=== PATIENT | male | born 1985 | race Caucasian/White ===

== ENCOUNTER 2017-03-29 12:44 | Inpatient (IN) | payer BC, OTHER ==
[~2017-03-29] VITALS: Ht 182.9 cm; Wt 64.4 kg
[2017-03-29 13:59] VITALS: BP 131/97
[2017-03-29] MEDS ORDERED: diphenhydrAMINE 50 MG CAPSULE PO PRN (14:45)
[2017-03-29] MEDS ORDERED: ONDANSETRON 4 MG/2 ML VIAL IM PRN (14:45)
[2017-03-29] MEDS ORDERED: BUPRENORPHINE HCL 2 MG TAB.SUBL SL PRN (14:45)
[2017-03-29] MEDS ORDERED: NICOTINE POLACRILEX 4 MG GUM-PK OF TEN BC PRN (14:45)
[2017-03-29] MEDS ORDERED: CLONIDINE HCL 0.1 MG TABLET PO PRN (14:45)
[2017-03-29] MEDS ORDERED: ONDANSETRON ODT 4 MG TAB.RAPDIS SL PRN (14:45)
[2017-03-29] MEDS ORDERED: IBUPROFEN 600 MG TABLET PO PRN (14:45)
[2017-03-29] MEDS ORDERED: METHOCARBAMOL 750 MG TABLET PO PRN (14:45)
[2017-03-29] MEDS ORDERED: MAGNESIUM HYDROXIDE 30 ML LIQUID UDC PO PRN (14:45)
[2017-03-29] MEDS ORDERED: ACETAMINOPHEN 325 MG TABLET PO PRN (14:45)
[2017-03-29] MEDS ORDERED: MIRALAX 17 GM POWD.PACK PO PRN (14:45)
[2017-03-29] MEDS ORDERED: LOPERAMIDE HCL 2 MG CAPSULE PO PRN ×2 (14:45)
[2017-03-29] MEDS ORDERED: HYDROXYZINE PAMOATE 25 MG CAPSULE PO PRN (14:45)
[2017-03-29] MEDS ORDERED: DICYCLOMINE HCL 20 MG TABLET PO PRN (14:45)
[2017-03-29] MEDS ORDERED: NICOTINE 14 MG/24HR PATCH TD PRN (14:45)
[2017-03-29] MEDS: BUPRENORPHINE HCL 2 MG TAB.SUBL SL SCH ×2 (14:53→21:21)
[2017-03-29] MEDS ORDERED: GABAPENTIN 300 MG CAPSULE PO ONE (15:00)
[2017-03-29] MEDS: LORAZEPAM 1 MG TABLET PO PRN (15:22)
[2017-03-29 15:35] LABS: *AMPHETAMINE, URINE POSITIVE (NEGATIVE); *BARBITURATE, URINE NEGATIVE (NEGATIVE); *CANNABINOID, URINE POSITIVE (NEGATIVE); *COCCAINE, URINE NEGATIVE (NEGATIVE); *OPIATE, URINE POSITIVE (NEGATIVE); *PHENCYCLIDINE SCREEN,URINE NEGATIVE (NEGATIVE)
[2017-03-29] MEDS: IV D5 1/2 NS 1000 ML 1,000 ML IV PRN (15:41)
[2017-03-29 16:00] VITALS: BP 140/80
[2017-03-29] MEDS: MAG HYDROX/AL HYDROX/SIMETH 30 ML LIQUID UDC PO PRN ×2 (16:19→21:20)
[2017-03-29 16:42] LABS: ALANINE AMINOTRANSFERASE 30 U/L (16-63); ALKALINE PHOSPHATASE 89 U/L (50-136); ASPARTATE AMINOTRANSFERASE 15 U/L (15-37); BILIRUBIN,TOTAL 0.8 mg/dL (0.2-1.0); CARBON DIOXIDE 26 mmol/L (21-32); CHLORIDE 99 mmol/L (98-107); POTASSIUM 3.4 mmol/L (3.5-5.1); TOTAL PROTEIN, SERUM 7.8 g/dL (6.4-8.2)
[2017-03-29 16:48] LABS: ETHANOL < 3 MG/DL (0-0)
[2017-03-29 16:53] LABS: GLUCOSE 140 mg/dL (74-106)
[2017-03-29 17:09] LABS: MAGNESIUM 1.8 mg/dL (1.8-2.4)
[2017-03-29 17:15] LABS: UREA NITROGEN, BLOOD 10 mg/dL (7-18)
[2017-03-29 17:45] LABS: BASOPHILS % (AUTO) 0.2 % (0.0-2.0); EOSINOPHILS % (AUTO) 0.1 % (0.0-7.0); HEMATOCRIT 46.7 % (40-50); HEMOGLOBIN 15.8 G/DL (14.0-18.0); LYMPHOCYTES # (AUTO) 1.5 K/UL (0.8-4.8); LYMPHOCYTES % (AUTO) 8.4 % (20.5-51.5); MEAN CORPUSCULAR HEMOGLOBIN 28.7 UUG (27.0-31.0); MEAN CORPUSCULAR HGB CONC 34 g/dL (32.0-37.0); MEAN CORPUSCULAR VOLUME 84.9 FL (82.0-92.0); MONOCYTES # (AUTO) 0.7 K/UL (0.1-1.30); MONOCYTES % (AUTO) 4.1 % (0.0-11.0); NEUTROPHILS % (AUTO) 87.2 % (38.5-71.5); PLATELET COUNT (AUTO) 255 K/UL (150-450); WHITE BLOOD COUNT (AUTO) 18.2 K/UL (4.0-11.2)
[2017-03-29 20:00] VITALS: BP 122/87
[2017-03-29] MEDS ORDERED: POTASSIUM CHLORIDE 10 MEQ CAPSULE.SA PO ONE (21:00)
[2017-03-29] MEDS ORDERED: LORAZEPAM 1 MG TABLET PO ONE (21:00)
[2017-03-29] MEDS: GABAPENTIN 300 MG CAPSULE PO SCH (21:22)
[2017-03-30] VITALS: BP 126/87
[2017-03-30] MEDS: IV D5 1/2 NS 1000 ML 1,000 ML IV PRN (01:06)
[2017-03-30] MEDS: LORAZEPAM 1 MG TABLET PO PRN ×2 (02:11→22:03)
[2017-03-30 04:00] VITALS: BP 123/73
[2017-03-30 08:00] VITALS: BP 108/70
[2017-03-30] MEDS: GABAPENTIN 300 MG CAPSULE PO SCH ×3 (08:55→22:04)
[2017-03-30] MEDS: BUPRENORPHINE HCL 2 MG TAB.SUBL SL SCH ×3 (08:56→22:03)
[2017-03-30] MEDS ORDERED: TUBERCULIN,PURIF.PROT.DERIV. 5 TU/0.1 ML TEST ID ONE (09:00)
[2017-03-30 12:00] VITALS: BP 117/76
[2017-03-30] MEDS: BACLOFEN 10 MG TABLET PO SCH ×2 (14:33→22:03)
[2017-03-30 16:00] VITALS: BP 140/85
[2017-03-30 20:00] VITALS: BP 125/78
[2017-03-30] MEDS: CLONIDINE HCL 0.1 MG TABLET PO SCH (22:03)
[2017-03-30] MEDS: TRAZODONE 50 MG TABLET PO SCH (23:20)
[2017-03-31] VITALS: BP 116/64
[2017-03-31 08:00] VITALS: BP 90/60
[2017-03-31] MEDS: CLONIDINE HCL 0.1 MG TABLET PO SCH ×3 (09:00→20:48)
[2017-03-31] MEDS ORDERED: BUPRENORPHINE HCL 2 MG TAB.SUBL SL SCH (09:00)
[2017-03-31] MEDS: BACLOFEN 10 MG TABLET PO SCH (09:07)
[2017-03-31] MEDS: GABAPENTIN 300 MG CAPSULE PO SCH ×3 (09:07→20:48)
[2017-03-31 09:12] LABS: HEPATITIS B SURFACE AG Negative (Negative)
[2017-03-31 12:00] VITALS: BP 116/82
[2017-03-31] MEDS ORDERED: BUPRENORPHINE HCL 2 MG TAB.SUBL SL PRN ×2 (12:30)
[2017-03-31] MEDS: BACLOFEN 20 MG TABLET PO SCH ×2 (14:18→20:48)
[2017-03-31 16:00] VITALS: BP 113/85
[2017-03-31 20:10] VITALS: BP 118/87
[2017-03-31] MEDS: TRAZODONE 50 MG TABLET PO SCH (21:00)
[2017-03-31] MEDS ORDERED: LORAZEPAM 1 MG TABLET PO ONE (21:00)
[2017-04-01 00:20] VITALS: BP 119/71
[2017-04-01 04:28] VITALS: BP 115/73
[2017-04-01 08:00] VITALS: BP 113/93
[2017-04-01] MEDS: GABAPENTIN 300 MG CAPSULE PO SCH ×3 (09:32→21:27)
[2017-04-01] MEDS: BACLOFEN 20 MG TABLET PO SCH ×3 (09:32→21:27)
[2017-04-01] MEDS: CLONIDINE HCL 0.1 MG TABLET PO SCH ×3 (09:37→21:27)
[2017-04-01 12:00] VITALS: BP 105/70
[2017-04-01 16:00] VITALS: BP 123/82
[2017-04-01] MEDS ORDERED: CLONIDINE HCL 0.2 MG TABLET PO ONE (16:15)
[2017-04-01] MEDS ORDERED: HYDROXYZINE PAMOATE 25 MG CAPSULE PO ONE (16:15)
[2017-04-01 20:00] VITALS: BP 118/70
[2017-04-01] MEDS: TRAZODONE 50 MG TABLET PO SCH (21:00)
[2017-04-01] MEDS ORDERED: GABA-534 PO ×2 (22:25)
[2017-04-01] MEDS ORDERED: CLON0.1T14 PO (22:25)
[2017-04-01] MEDS ORDERED: TRAZ-144 PO (22:25)
[2017-04-01] MEDS ORDERED: HYDR-3895 PO (22:25)
[2017-04-01] MEDS ORDERED: BACL20TA PO (22:25)
[2017-04-01] MEDS ORDERED: IBUP-1955 PO (22:25)
[2017-04-01] MEDS ORDERED: DICY20TA28 PO (22:25)
[2017-04-02 08:00] VITALS: BP 113/69
[2017-04-02 08:08] VITALS: BP 113/69
[2017-04-02 08:42] VITALS: BP 113/69
[2017-04-02] MEDS: CLONIDINE HCL 0.1 MG TABLET PO SCH (08:42)
[2017-04-02] MEDS: BACLOFEN 20 MG TABLET PO SCH (08:42)
[2017-04-02] MEDS: GABAPENTIN 300 MG CAPSULE PO SCH (08:42)
== END 2017-04-02 10:30 | disposition home or self-care (01) | DRG 895 ==
LOC: SRC 13:16
PROVIDERS: ADMIT Internal Medicine; ATTEND Internal Medicine
DX: F11.23 Opioid dependence with withdrawal (principal); F15.20 Other stimulant dependence, uncomplicated; D72.829 Elevated white blood cell count, unspecified; E87.6 Hypokalemia; F10.10 Alcohol abuse, uncomplicated; Y90.9 Presence of alcohol in blood, level not specified; F17.210 Nicotine dependence, cigarettes, uncomplicated; F41.9 Anxiety disorder, unspecified; Z82.49 Family history of ischemic heart disease and other diseases of the circulatory system; F12.90 Cannabis use, unspecified, uncomplicated; R73.9 Hyperglycemia, unspecified; G47.00 Insomnia, unspecified
CPT/HCPCS: 36415; 70030-TC; 80307; 80324; 80349; 80361; 83735; 85025; 86592; 86705; 86803; 87340; 87806; A4663; G0480; J2405; J3490

== ENCOUNTER 2018-04-30 16:04 | Inpatient (IN) | payer BC, OTHER ==
[~2018-04-30] VITALS: Ht 182.9 cm; Wt 68.0 kg
[~2018-04-30 16:04] MED LIST: BACL20TA PO; CLON0.1T14 PO; DICY20TA28 PO; GABA-534 PO; HYDR-3895 PO; IBUP-1955 PO; TRAZ-213 PO
--- NOTE | 2018-04-30 16:15 | NUR ---
Pre-assessment Note Pre-assessment done at intake office, client is A/O x4, he presents with flat affect, anxious mood, agitated, restless, flushed face, and clammy skin. Client is covered with a thick black blanket, he is shivering, he stated, "I'm so cold, nothing makes feel warm right now." Client reports withdrawal symptoms as follow: abdominal cramps, nausea, vomiting, loose stools, chills/cold, sweats, nasal congestions, yawning, tremors, goosebump, and generalized muscle aches. Client is wearing clean clothes, he appears malnourished, dark circles noted under eyes. Client avoids eye contact, he answers questions in a pressured speech. T 98.1 , RR 16, HR 101, BP 133/81, spO2 @ 97% on RA, no pain. He is fully ambulatory. He reports NKA. Client verbalized understanding of disposal of unidentifiable pills and controlled medications, unit protocol regarding vital signs Q4H, blood drawn, and urine drug test.
--- NOTE | 2018-04-30 16:31 | NUR ---
Admission Note Client stated, "I need help with my heroin addiction." Client is a 33 year old male, arrived on the unit at 1631. Client has a steady gait. Admitted for medically withdrawal of heroin. Client is a/o X 4. He appears anxious and restless. Client appears to be withdrawing from heroin. Client is oriented to unit, educated about protocols and how to work TV and call light in his room. Weigh: 150 pounds. Height: 6' COWS 9 Client denies taking any home medications. Client substance use: Heroin, client started using six years ago and within one year he became fully dependent on daily use. For the past three months he has been using 0.5gm smoked daily, last used 1/4 gm the morning of admission at 0800. Bilateral lung clear on auscultation, abdomen soft, non-tender, no edema noted. Client denies any history of withdrawal induces seizure. Client reports past medical history: Anxiety (2014). Past surgical history: [place] teeth removal (2004), Lymphadenectomy (2004). Client denies any history of involuntary psychiatric hospitalization, no history of suicidal/homicidal ideation. Client reports regular diet, full code ordered. Client declines PNA /FLU vaccine, stating, "No, I'm good, I don't think I'll get those diseases." He gives verbal consent for HIV. He reports history of eight treatment last being [facility] 03/29/17 to 06/02/16. his longest period of sobriety is for a whole year in 2012. Client stated, the reason why he relapses, "I believe it has to do with my social group, I need a different environment." When asked client how this treatment will be different he stated, "I don't know, but I want to make this my last." Client stated, "I need to go into treatment, at least a [address] Nathan notified of client's admission. Client provided urine (clear/yellow) for urine drug screen. All safety measures instituted. [place] precaution. Call light within reach. Will continue to monitor.
[2018-04-30] MEDS ORDERED: ONDANSETRON ODT 4 MG TAB.RAPDIS SL PRN (17:30)
[2018-04-30] MEDS ORDERED: MAGNESIUM HYDROXIDE 30 ML LIQUID UDC PO PRN (17:30)
[2018-04-30] MEDS ORDERED: MIRALAX 17 GM POWD.PACK PO PRN (17:30)
[2018-04-30] MEDS ORDERED: MAG HYDROX/AL HYDROX/SIMETH 30 ML LIQUID UDC PO PRN (17:30)
[2018-04-30] MEDS ORDERED: BUPRENORPHINE HCL 2 MG TAB.SUBL SL PRN (17:30)
[2018-04-30] MEDS ORDERED: diphenhydrAMINE 50 MG CAPSULE PO PRN (17:30)
[2018-04-30] MEDS ORDERED: ONDANSETRON 4 MG/2 ML VIAL IM PRN (17:30)
[2018-04-30] MEDS ORDERED: LOPERAMIDE HCL 2 MG CAPSULE PO PRN ×2 (17:30)
[2018-04-30 17:52] LABS: *AMPHETAMINE, URINE NEGATIVE (NEGATIVE); *BARBITURATE, URINE NEGATIVE (NEGATIVE); *CANNABINOID, URINE NEGATIVE (NEGATIVE); *COCCAINE, URINE NEGATIVE (NEGATIVE); *OPIATE, URINE POSITIVE (NEGATIVE); *PHENCYCLIDINE SCREEN,URINE NEGATIVE (NEGATIVE)
--- NOTE | 2018-04-30 19:16 | NUR ---
END OF SHIFT Endorse client to incoming nurse, client is in room, a/o x 4, client continues Client to present with anxiety, chills/cold, clammy skin, enlarged pupil, fatigue, and tremors felt. PRN Subutex Q4H SL for COWS 12 or greater. Last COWS 9 @ 1700. Adequate PO fluid intake 300mL, void x 1. Call light within reach.
--- NOTE | 2018-04-30 20:00 | NUR ---
COWS Assessment/PRN Medication Administration Patient continues to be monitored for increased signs and symptoms of withdrawal. Patient appears to be disheveled, with flat, depressed affect. He is noted with pressured blunt speech. Patient is noted to verbalize increased anxiety, agitation, restlessness, tremors, chills, sweats, increased yawning, body aches, goose bumps, and insomnia. PRN Ativan 2mg, Clonidine, Robaxin, and Benadryl administered. Will continue to monitor.
[2018-04-30 20:01] VITALS: BP 121/76
[2018-04-30] MEDS: LORAZEPAM 1 MG TABLET PO PRN (20:03)
[2018-04-30] MEDS: CLONIDINE HCL 0.1 MG TABLET PO PRN (20:03)
[2018-04-30] MEDS: METHOCARBAMOL 750 MG TABLET PO PRN (20:03)
[2018-04-30 20:38] LABS: BASOPHILS % (AUTO) 0.5 % (0.0-2.0); EOSINOPHILS # (AUTO) 0.2 K/uL (0.0-0.7); EOSINOPHILS % (AUTO) 1.5 % (0.0-7.0); HEMATOCRIT 39.7 % (36.7-47.1); HEMOGLOBIN 13.9 g/dL (12.5-16.3); LYMPHOCYTES # (AUTO) 1.6 K/uL (20.0-40.0); LYMPHOCYTES % (AUTO) 15.3 % (20.5-51.5); MEAN CORPUSCULAR HGB CONC 35 g/dL (32.5-36.3); MEAN CORPUSCULAR VOLUME 88.5 fL (73.0-96.2); MONOCYTES # (AUTO) 0.5 K/uL (2.0-10.0); MONOCYTES % (AUTO) 5.1 % (0.0-11.0); NEUTROPHILS # (AUTO) 8.3 K/uL (1.8-8.9); NEUTROPHILS % (AUTO) 77.6 % (38.5-71.5); PLATELET COUNT (AUTO) 186 K/uL (152-348); RED BLOOD CELL COUNT(AUTO) 4.49 MIL/uL (4.06-5.63); WHITE BLOOD COUNT (AUTO) 10.7 K/uL (3.6-10.2)
[2018-04-30 20:51] LABS: ETHANOL < 3 MG/DL (0-0)
[2018-04-30 20:52] LABS: ALANINE AMINOTRANSFERASE 53 U/L (16-63); ALKALINE PHOSPHATASE 100 U/L (50-136); ASPARTATE AMINOTRANSFERASE 25 U/L (15-37); BILIRUBIN,TOTAL 0.3 mg/dL (0.2-1.0); CARBON DIOXIDE 29 mmol/L (21-32); CHLORIDE 101 mmol/L (98-107); CREATININE 0.9 mg/dL (0.6-1.3); GLUCOSE 97 mg/dL (74-106); MAGNESIUM 1.9 mg/dL (1.8-2.4); POTASSIUM 3.7 mmol/L (3.5-5.1); TOTAL PROTEIN, SERUM 6.7 g/dL (6.4-8.2); UREA NITROGEN, BLOOD 11 mg/dL (7-18)
--- NOTE | 2018-04-30 21:00 | NUR ---
PRN Medication Reassessment patient is noted in bed with eyes closed. Breathing even and non labored. No signs of restlessness or facial grimacing noted. PRN Ativan 2mg, Clonidine, Robaxin, and Benadryl noted to be effective. Will continue to monitor.
[2018-04-30 21:16] LABS: THYROID STIMULATING HORMONE 0.258 mIU/mL (0.358-3.740)
--- NOTE | 2018-05-01 00:27 | NUR ---
COWS and Vitals Patient is noted in bed with eyes closed. Breathing even and non labored. No signs of restlessness or facial grimacing noted. Patient refused vitals. COWS not able to be completed as per order. Will continue to monitor.
--- NOTE | 2018-05-01 07:19 | NUR ---
End of Shift Patient is in bed with eyes closed. Breathing even and non labored. Patient is a 33 year old male admitted for medically supervised opiate withdrawal and is currently receiving PRN medications for increased signs and symptoms of withdrawal. Patient is noted to refuse Subutex medication and is only requesting PRN medications for increased signs and symptoms of withdrawal. Patients last COWS noted to be 17. He was noted to refuse Vitals throughout the shift. He received PRN Ativan 2mg, Benadryl, and Clonidine with medications noted to be effective. Patient noted to sleep a total of 10 hours. Patient appears to be disheveled, with flat, depressed affect. He is noted with pressured blunt speech. He is able to verbalize increased anxiety, agitation, restlessness, tremors, chills, sweats, increased yawning, body aches, goose bumps, and insomnia. All needs attended to promptly. Will endorse to continue plan of care as ordered.
[2018-05-01 08:00] VITALS: BP 114/73
--- NOTE | 2018-05-01 08:00 | NUR ---
START OF SHIFT: Received Pt A/O X 4 laying in bed . He is fidgety. His skin is moist. Piloerection of the skin noted. He reports chills.sweats,severe anxiety,restlessness,teary eyes and yawning. COWS 18 He states he does not want to take Subutex yet because he is afraid it is too soon. Encouraged him to take it to reduce symptoms of w/d. He requested PRN Ativan and PRN Robaxin and Ibuprofen and states he will take Subutex later. Encouraged increased fluids to assist ion facilitating detox process. Encouraged rest. He refused PPD. Will continue to monitor and offer support.
[2018-05-01] MEDS: METHOCARBAMOL 750 MG TABLET PO PRN ×2 (08:56→23:08)
[2018-05-01] MEDS: MULTIVITAMINS,THERAPEUTIC TABLET PO SCH (08:56)
[2018-05-01] MEDS: LORAZEPAM 1 MG TABLET PO PRN (08:56)
[2018-05-01] MEDS ORDERED: TUBERCULIN,PURIF.PROT.DERIV. 5 TU/0.1 ML TEST ID ONE (09:00)
[2018-05-01 12:00] VITALS: BP 108/50
--- NOTE | 2018-05-01 12:05 | NUR ---
COWS=11 He reports chills,sweats, anxiety and body aches. He continues to lay in bed and refuses PRNs at this time.
--- NOTE | 2018-05-01 14:05 | NUR ---
Pt c/o severe body aches,anxiety,sweats,chills,restlessness and agitation. COWS 18 He agreed to take Subutex 4mg SL PRN to manage s/s of w/d. Will monitor effectiveness of PRN medication.
--- NOTE | 2018-05-01 14:20 | NUR ---
Therapist met client, and prompted him to attend group therapy when he is ready.
--- NOTE | 2018-05-01 14:35 | NUR ---
Pt reports feeling fatigued,restless,achy,sweaty and irritated. COWS 11 Subutex mildly effective in reducing s/s of w/d.
[2018-05-01 16:00] VITALS: BP 106/72
[2018-05-01] MEDS: CLONIDINE HCL 0.1 MG TABLET PO PRN (16:19)
--- NOTE | 2018-05-01 16:20 | NUR ---
PRN Zofran ODT and PRN Clonidine givne for reported episode of vomiting,chills and sweats. Will monitor effectiveness of PRN med.
--- NOTE | 2018-05-01 17:28 | NUR ---
PRN Clonidine effective. PRN Zofran odt not effective as Pt had another episode of vomiting. PRN Zofran IM administered to manage N/V. Will monitor effectiveness.
--- NOTE | 2018-05-01 17:55 | NUR ---
PRN Subutex 4mg SL given for reported body aches,sweats,chills,anxiety and restlessness.COWS 16 Will monitor effectiveness. Addendum: 05/01/18 at 1843 by ERICA VILLANUEVA RN PRNell ANDERSON effective
[2018-05-01] MEDS: BUPRENORPHINE HCL 2 MG TAB.SUBL SL PRN ×2 (17:58→23:08)
--- NOTE | 2018-05-01 18:20 | NUR ---
PRN Subutex effective. COWS 11
--- NOTE | 2018-05-01 18:44 | NUR ---
END OF SHIFT: Pt stayed in bed most of shift. He refused PRN Subutex until 1400 to manage s/s of w/d. He reported sweats,chills,body aches,anxiety,restlessness ,nausea and had two episodes of vomiting. He is disheveled. PRN Subutex given X 2 to manage s/s of w/d.Last COWS 11 PRN Clonidine,Robaxin and Zofran PO which was not effective so Zofran IM given for vomiting 4 day taper to start tomorrow in AM and PRNs available tonight. Encouraged slow small sips of fluid. Encouraged rest. Will pass shift report to oncoming night nurse.
--- NOTE | 2018-05-01 19:15 | NUR ---
START OF SHIFT Patient is a 33-year-old male admitted on 04/30/18 for opiate withdrawal. Patient is scheduled to start a 4-day Subutex taper tomorrow, 05/02/18. Patients last COWS score was 11, per endorsement. Patient received PRN Subutex 4mg x2, for elevated COWS scores. Patient also received PRN Clonidine, Robaxin, Ativan, and Zofran SL and Zofran IM for nausea and episodes of emesis. PRN medications were noted to be effective. Upon assessment, patient is alert and oriented x4, complaining of nausea and heartburn. Patient is not actively vomiting at this time. Patient reports lower back pain 9/10 on pain scale. Patient appears pale, disheveled, and tired, but states I feel better than before. Patient reports anxiety, chills, and difficulty sleeping. Patient is on fall precautions with no history of seizure activity. Safety measures in place, side rails up x2, bed locked in low position, call light within reach. Will continue to monitor.
[2018-05-01 20:00] VITALS: BP 97/71
--- NOTE | 2018-05-01 20:00 | NUR ---
COWS 10 Patient reports anxiety, chills and sweats, nausea, restlessness and agitation, lower back pain, and irritability. Current COWS 10. Respirations even and unlabored. Safety measures in place, call light within reach. SN to administer meds as ordered.
[2018-05-01] MEDS: IBUPROFEN 600 MG TABLET PO PRN (21:03)
--- NOTE | 2018-05-01 21:03 | NUR ---
PRN MAALOX & MOTRIN Patient reports lower back pain 9/10 on pain scale. Patient complains of heartburn stating, "I feel like it's making me nauseous." PRN Maalox and PRN Motrin given PO. Safety measures in place, side rails up x2, bed locked in low position, call light within reach. SN provided patient with two heat packs in addition to PRNs. Will monitor for effectiveness.
--- NOTE | 2018-05-01 22:03 | NUR ---
PRN MAALOX & MOTRIN REASSESSMENT Patient reports lower back pain 6/10 on pain scale stating, "the Motrin helped a little. The heat packs are good, even though they only last like 20 minutes." Patient also states that PRN Maalox relieved heartburn and also that his nausea had subsided. Safety measures in place, side rails up x2, bed locked in low position, call light within reach. Will continue to monitor.
[2018-05-01] MEDS: QUETIAPINE FUMARATE 25 MG TABLET PO PRN (23:08)
--- NOTE | 2018-05-01 23:08 | NUR ---
COWS 13, PRN SUBUTEX 4mg, ROBAXIN & SEROQUEL Patient reports increased anxiety, intermittent nausea, chills and sweats, body aches, a stuffy nose, and patient has an elevated HR. Patient reports difficulty sleeping as well. COWS 13. PRN Subutex 4mg given SL, PRN Robaxin 750mL given PO, PRN Seroquel 50mg given PO. Safety measures in place, side rails up x2, bed locked in low position, call light within reach. Will monitor for effectiveness.
[2018-05-02] VITALS: BP 102/64
--- NOTE | 2018-05-02 00:08 | NUR ---
COWS DEFERRED, PRN REASSESSMENT Patient is observed sleeping in bed with eyes closed, respirations even and unlabored. COWS deferred at this time; to be assessed while patient is awake. Unable to assess effectiveness of PRN medications. Safety measures in place, call light within reach. Will continue to monitor.
--- NOTE | 2018-05-02 04:00 | NUR ---
VITALS REFUSED, COWS DEFERRED Vitals refused at this time, COWS deferred due to patient sleeping; to be assessed and scored while patient is awake. Respirations even and unlabored, 16/min. Safety measures in place, side rails up x2, bed locked in low position, call light within reach. Will continue to monitor.
--- NOTE | 2018-05-02 07:18 | NUR ---
END OF SHIFT Patient is a 33-year-old male admitted on 04/30/18 for opiate withdrawal. Patient is scheduled to start a 4-day Subutex taper today, 05/02/18. Patients last COWS score was 13. Patient received PRN Subutex 4mg for elevated COWS score. Patient also received PRN Robaxin, Seroquel, Maalox, and Motrin. PRN medications were noted to be effective. Patient slept for 11 hours, total intake of 1,595mL, void x3, stool x1. Patient has requested to make a phone call this morning if possible. Patient is on fall precautions with no history of seizure activity. Safety measures in place, side rails up x2, bed locked in low position, call light within reach. Will endorse to day shift.
--- NOTE | 2018-05-02 07:35 | NUR ---
START OF SHIFT Endorse rcvd from ongoing nurse, client is in room, lying in bed on his R side, he sound asleep, easy to awaken, RR 16, even, non-labored. Last COWS 13 @ 2300. PRN Subutex 4mg SL for COWS 13, PRN Robaxin 750mL PO, PRN Motrin 600mg PO for back pain 01/11, PRN Maalox 30mL for heartburn, PRN Seroquel 50mg PO for insomnia. Client has been sleeping for 11 hrs. [place] precautions. Side rails x 2 up. Call light within reach. Will continue to monitor.
[2018-05-02 08:18] VITALS: BP 98/55
[2018-05-02] MEDS ORDERED: 4 DAY TAPER BUPRENORPHINE -SERENITY PROTOCOL SL PRN (09:00)
[2018-05-02] MEDS: MULTIVITAMINS,THERAPEUTIC TABLET PO SCH (09:35)
[2018-05-02] MEDS: BUPRENORPHINE HCL 2 MG TAB.SUBL SL SCH ×3 (09:36→21:52)
--- NOTE | 2018-05-02 09:36 | NUR ---
COWS 14 Client is in room, he presents with emotional volatility, agitation, anxiety, poor appetite, flushed facial skin, depression, difficulty concentrating, difficulty thinking clearly, fatigue, and tremors. Subutex 4mg SL administered. Encourage client to increase PO fluid intake as tolerated to facilitate detox. Call light within reach.
[2018-05-02 12:23] VITALS: BP 125/71
[2018-05-02] MEDS: IBUPROFEN 600 MG TABLET PO PRN (12:30)
[2018-05-02] MEDS: GABAPENTIN 300 MG CAPSULE PO SCH ×2 (12:30→16:19)
[2018-05-02] MEDS: METHOCARBAMOL 750 MG TABLET PO PRN (12:30)
[2018-05-02] MEDS: ACETAMINOPHEN 325 MG TABLET PO PRN (12:30)
--- NOTE | 2018-05-02 12:30 | NUR ---
COWS 14 & PRN Tylenol 650g, Motrin 600mg PO for generalized body aches 11/10, Robaxin 750mg PO for myalgia. Client presents with depressed mood, flat affect, flushed facial skin, goosebump, difficulty concentrating. Client reports tremors, generalized body aches, abdominal cramps, myalgia, restless legs, nasal congestion, yawning, and fatigue. Call light within reach.
--- NOTE | 2018-05-02 13:30 | NUR ---
Reassess PRN Tylenol 650mg, Motrin 600mg, Robaxin 750mg client reports relief from generalized body aches 0/10 and myalgia. Call light within reach.
--- NOTE | 2018-05-02 15:37 | NUR ---
COWS 13 Client continues to presents with agitation, anxiety, abdominal cramps, anhedonia, poor appetite, cold/chills, clammy skin, depression, difficulty concentrating, difficulty thinking clearly, enlarged pupils, fatigue, fine tremors, flushed facial skin, goosebump, generalized body aches, restless legs, sneezing, yawning, and fatigue. Schedule Subutex 4mg SL administered. Will continue to monitor. Call light within reach.
[2018-05-02 16:29] VITALS: BP 119/80
[2018-05-02] MEDS ORDERED: GABA600T12 PO ×2 (16:38)
[2018-05-02] MEDS ORDERED: BACL20TA PO (16:38)
--- NOTE | 2018-05-02 19:09 | NUR ---
END OF SHIFT Endorse client to incoming nurse, client is in room, a/o x 4, client continues to presents with agitation, anxiety, abdominal cramps, anhedonia, poor appetite, cold/chills, clammy skin, depression, difficulty concentrating, difficulty thinking clearly, enlarged pupils, fatigue, fine tremors, flushed facial skin, goosebump, generalized body aches, restless legs, sneezing, yawning, and fatigue Client denies N/V/D, no SI/HI. Client is on first of 4 day Subutex taper. Last COWS 13 @ 1600. Client is compliant with 1/3 of group therapy. Consumes 50-75% of meals. Adequate PO fluid intake 2806mL, void x 5, stool x 1. Call light within reach.
--- NOTE | 2018-05-02 19:30 | NUR ---
Start of Shift Patient Received. Per endorsement, patient is a 33 year old male that was started on a modified Subutex taper. Patient received PRN Motrin, Tylenol, and Robaxin with medication noted to be effective. Last noted COWS 13. Upon rounds patient is noted in bed awake alert and verbally responsive. Patient is noted watching TV in a dark room. Patient appears to be flat with depressed affect. His speech was noted to be blunt, pressured, with one word responses. He is able to verbalize increased anxiety, agitation, clammy skin, intermittent chills and sweats, generalized body aches, tremors, restlessness, increased yawning, and insomnia. He also verbalizes increased fatigue and difficult concentrating due to increased racing thoughts. Patient has been unable to participate in group and social activities due to his withdrawal symptoms but is able to verbalize that starting taper medication has minimizing signs and symptoms of withdrawal. All needs attended to promptly. Will continue plan of care as ordered.
[2018-05-02 20:30] VITALS: BP 116/77
--- NOTE | 2018-05-02 21:00 | NUR ---
COWS Assessment Patient continues to be monitored for increased signs and symptoms of Opiate withdrawal. Patient appears to be flat with depressed affect. Speech is blunt, pressured, with one word responses. He is able to verbalize increased anxiety, agitation, clammy skin, intermittent chills and sweats, generalized body aches, tremors, restlessness, increased yawning, and insomnia. He also verbalizes increased fatigue and difficult concentrating due to increased racing thoughts. He continues on Routine medications as ordered. Will continue to monitor.
[2018-05-02] MEDS: QUETIAPINE FUMARATE 25 MG TABLET PO PRN (21:52)
[2018-05-02] MEDS: CLONIDINE HCL 0.1 MG TABLET PO PRN (22:00)
--- NOTE | 2018-05-02 22:00 | NUR ---
PRN Medication Administration Patient is noted verbalizing increased anxiety, chills, sweats, and inability of falling asleep. PRN Clonidine and Seroquel administered as per order. Will continue to monitor.
--- NOTE | 2018-05-02 23:03 | NUR ---
PRN Medication Reassessment Patient is noted in bed with eyes closed. Breathing even and non labored. No signs of restlessness or facial grimacing noted. PRN Clonidine and Seroquel noted to be effective. Will continue to monitor.
--- NOTE | 2018-05-03 00:45 | NUR ---
COWS Assessment and Vitals Patient is noted in bed with eyes closed. Breathing even and non labored. No signs of restlessness or facial grimacing noted. Patient Refused vitals. COWS Assessment not able to be completed as per order. Will continue to monitor.
--- NOTE | 2018-05-03 07:14 | NUR ---
End of Shift Patient is a 33 year old male that continues on a modified Subutex taper. Patient received PRN Clonidine and Seroquel with medications noted to be effective. Last noted COWS 13. Patient noted to sleep a total of 6 hours. Patient appears to be flat with depressed affect, speech is blunt, pressured, with one word responses. He is able to verbalize increased anxiety, agitation, clammy skin, intermittent chills and sweats, generalized body aches, tremors, restlessness, increased yawning, and insomnia. He also verbalizes increased fatigue and difficult concentrating with increased racing thoughts. Patient has been noted to be withdrawn to room due to physical withdrawal symptoms but is able to verbalize that starting taper medication has minimizing signs and symptoms of withdrawal. All needs attended to promptly. Will endorse to continue plan of care as ordered.
--- NOTE | 2018-05-03 07:30 | NUR ---
START OF SHIFT Endorse rcvd from ongoing nurse, client is in room, sitting at the edge of bed, a/o x 4, he presents with depressed mood, dark circles under eyes, dry lips, avoidant gaze, tremors, and difficulty concentrating. Client reports feeling depressed, poor appetite, anhedonia, cold/chills, body aches, restless legs, and difficulty sleeping. Encouraged client to attend group therapy to learn skills to maintain sober. PRN Clonidine 0.1mg PO for anxiety and agitation, Seroquel 50mg PO for insomnia, he slept 6hrs. Client is on 2nd of 4 day Subutex taper. Last COWS 13 @ 1999. [place] precautions. Side rails x 2 up. Call light within reach. Will continue to monitor.
[2018-05-03 08:16] VITALS: BP 101/66
[2018-05-03] MEDS ORDERED: BUPRENORPHINE HCL 2 MG TAB.SUBL SL SCH (09:00)
[2018-05-03] MEDS: GABAPENTIN 300 MG CAPSULE PO SCH ×2 (09:14→12:20)
[2018-05-03] MEDS: MULTIVITAMINS,THERAPEUTIC TABLET PO SCH (09:14)
--- NOTE | 2018-05-03 09:15 | NUR ---
COWS 13 Client presents with depressed mood, dark circles under eyes, dry lips, avoidant gaze, tremors, and difficulty concentrating. Client reports feeling depressed, poor appetite, anhedonia, cold/chills, body aches, restless legs, and difficulty sleeping. Subutex 4mg SL administered. Encourage client to attend group therapy to learn skills to maintain sober. Call light within reach.
[2018-05-03 12:20] VITALS: BP 116/79
[2018-05-03] MEDS: HYDROXYZINE PAMOATE 25 MG CAPSULE PO PRN (12:20)
[2018-05-03] MEDS: ACETAMINOPHEN 325 MG TABLET PO PRN (12:20)
[2018-05-03] MEDS: CLONIDINE HCL 0.1 MG TABLET PO PRN (12:20)
[2018-05-03] MEDS: METHOCARBAMOL 750 MG TABLET PO PRN ×2 (12:20→23:06)
[2018-05-03] MEDS: IBUPROFEN 600 MG TABLET PO PRN (12:20)
--- NOTE | 2018-05-03 12:20 | NUR ---
COWS 15 & PRN Vistaril 50mg PO for anxiety mb increased P 103, Clonidine 0.1mg PO for agitation, cold/chills, Robaxin 750mg PO for myalgia on lower back, Motrin 600mg PO and Tyleol 650mg PO for back pain. Will continue to monitor. Call light within reach.
[2018-05-03] MEDS ORDERED: QUETIAPINE FUMARATE 25 MG TABLET PO PRN (12:45)
--- NOTE | 2018-05-03 12:59 | NUR ---
Therapist prompted client to attend all daily group therapy sessions.
--- NOTE | 2018-05-03 13:20 | NUR ---
Reassess PRN Vistaril 50mg, Clonidine 0.1mg, Robaxin 750mg, on lower back, Motrin 600mg, and Tylenol 650mg, client reports slight relief from anxiety, agitation, and decreased in low back pain. Call light within reach.
[2018-05-03] MEDS: BUPRENORPHINE HCL 2 MG TAB.SUBL SL SCH ×2 (15:17→21:44)
--- NOTE | 2018-05-03 15:17 | NUR ---
COWS 14 Client reports increased anxiety, agitation, clammy skin, intermittent chills and sweats, generalized body aches, tremors, restlessness, increased yawning, insomnia, and fatigue. Schedule Subutex 2mg SL administered. Call light within reach.
[2018-05-03] MEDS: KETOCONAZOLE 2% SHAMPOO 120 ML BOTTLE TP SCH (15:25)
[2018-05-03 16:48] VITALS: BP 126/86
--- NOTE | 2018-05-03 19:06 | NUR ---
END OF SHIFT Endorse client to incoming nurse, client is in room, a/o x 4, client continues to presents with anxiety, agitation, clammy skin, intermittent chills and sweats, generalized body aches, tremors, restlessness, increased yawning, insomnia, and fatigue. Client denies N/V/D, no SI/HI. PRN Vistaril 50mg PO for anxiety mb increased P 103, Clonidine 0.1mg PO for agitation, cold/chills, Robaxin 750mg PO for myalgia on lower back, Motrin 600mg PO and Tyleol 650mg PO for back pain Client is on second of 4 day Subutex taper. Last COWS 14 @ 1520. Client is compliant with 1/3 of group therapy. Consumes 50-75% of meals. Adequate PO fluid intake 2870mL, void x 4, stool x 1. Call light within reach.
--- NOTE | 2018-05-03 19:25 | NUR ---
START OF SHIFT Patient is a 33-year-old male admitted on 04/30/18 for opiate withdrawal. Patient is currently on a 4-day Subutex taper, tolerating well; today is the second day of the taper. Patients last COWS was 14, per endorsement. Patient received the following PRNs today: Clonidine, Vistaril, Tylenol, Robaxin and Motrin. PRN medications were noted to be somewhat effective. Upon assessment, patient appears pale and tired. Patient complains of anxiety and difficulty sleeping and states that he had requested Trazodone instead of Seroquel, however, the request was not reflected in patients eMAR. Patient appears disheveled and unkempt. Patient is on fall precautions with no history of seizure activity. Safety measures in place, side rails up x2, bed locked in low position, call light within reach. Will continue to monitor.
[2018-05-03 20:00] VITALS: BP 133/90
--- NOTE | 2018-05-03 20:00 | NUR ---
COWS 14 Patient reports anxiety, restlessness, agitation, yawning, body aches, piloerection, chills and sweats. HR elevated. Current COWS 14. Patient requests scheduled meds later in the evening. Safety measures in place, call light within reach. Will continue to monitor.
[2018-05-03] MEDS ORDERED: QUETIAPINE FUMARATE 100 MG TABLET PO PRN (21:00)
[2018-05-03] MEDS: GABAPENTIN 400 MG CAPSULE PO SCH (21:44)
--- NOTE | 2018-05-03 23:06 | NUR ---
PRN SEROQUEL & ROBAXIN Patient reports body aches and difficulty sleeping. PRN Seroquel 100mg given PO and PRN Robaxin 750mg given PO. Safety measures in place, side rails up x2, bed locked in low position, call light within reach. Will monitor for effectiveness.
[2018-05-04] VITALS: BP 124/78
--- NOTE | 2018-05-04 00:06 | NUR ---
COWS 13, PRN SEROQUEL & ROBAXIN REASSESSMENT Patient has elevated HR and reports anxiety, restlessness, agitation, generalized body aches, piloerection, chills and sweats. Patient is observed yawning occasionally. Patient states that body aches have improved mildly. Patient reports not feeling sleepy yet but that PRN Seroquel "made me want some snacks." Safety measures in place, side rails up x2, bed locked in low position, call light within reach. Will continue to monitor.
--- NOTE | 2018-05-04 04:00 | NUR ---
VITALS REFUSED, COWS DEFERRED Patient refused vitals at this time due to difficulty falling back asleep. COWS deferred due to patient sleeping; to be assessed while patient is awake. Respirations even and unlabored, 18/min. Safety measures in place, side rails up x2, bed locked in low position, call light within reach. Will continue to monitor.
--- NOTE | 2018-05-04 07:21 | NUR ---
END OF SHIFT Patient is a 33-year-old male admitted on 04/30/18 for opiate withdrawal. Patient is currently on a 4-day Subutex taper, tolerating well; today will be day 3 of the taper. Patients last COWS was 13. Patient received PRN Seroquel and Robaxin, both noted to be somewhat effective. Patient slept for 6 hrs, total intake of 1,000mL, void x2, stool x0. Patient is on fall precautions with no history of seizure activity. Safety measures in place, side rails up x2, bed locked in low position, call light within reach. Will endorse to day shift.
--- NOTE | 2018-05-04 07:40 | NUR ---
START Of SHIFT Pt is a 33 yr old male, admitted on 04/30/18 for Opiate withdrawal and is on 4 day Subutex taper as ordered. Received report from mine shifter nurse. Pt was given Robaxin PRN and Seroquel PRN during the night. Medication was effective. Last COWS score was 13. Pt slept for 6 hrs and remains in bed sleeping with respirations even and unlabored. Skin is intact, warm and moist to touch. Pt room is noted disheveled with dirty clothes on the floor and multiple open bottles of water on bedside table. Safety precautions observed. Call light is within reach. Will continue to monitor.
[2018-05-04 08:00] VITALS: BP 106/60
[2018-05-04] MEDS: GABAPENTIN 400 MG CAPSULE PO SCH ×2 (10:01→20:53)
[2018-05-04] MEDS: MULTIVITAMINS,THERAPEUTIC TABLET PO SCH (10:01)
[2018-05-04] MEDS: BUPRENORPHINE HCL 2 MG TAB.SUBL SL SCH ×3 (10:01→20:51)
--- NOTE | 2018-05-04 10:05 | NUR ---
COWS ASSESSMENT Pt is c/o anxiety, agitation, sweats, chills, lower back pain and stuffy nose. Pt is noted with fine tremors and clammy skin. COWS score was 9. Encouraged increase fluid intake. Will continue to monitor.
[2018-05-04] MEDS: KETOCONAZOLE 2% SHAMPOO 120 ML BOTTLE TP SCH (10:07)
[2018-05-04 12:00] VITALS: BP 101/66
--- NOTE | 2018-05-04 12:00 | NUR ---
COWS ASSESSMENT Pt is c/o anxiety, sweats, and lower back pain and tooth ache 4/10. Pt is observed with flat affect, fine tremors on BUE and clammy skin. COWS score is 10. Encouraged increase fluid intake. Will continue to monitor.
[2018-05-04] MEDS ORDERED: AMMONIUM LACTATE 12% LOTION 225 GM BOTTLE TP PRN (13:15)
[2018-05-04] MEDS ORDERED: TRAZODONE 100 MG TABLET PO PRN (13:30)
[2018-05-04 16:30] VITALS: BP 118/90
--- NOTE | 2018-05-04 19:26 | NUR ---
END OF SHIFT Pt is a 33 yr old male, AA&Ox4. Pt was admitted on 04/30/18 for Opiate withdrawal and is on 4 day Subutex taper as ordered. Pt has been observed with increase fatigue and remained in bed throughout the day. Pt was encouraged to attend group therapy but pt refused. Pt was c/o anxiety, agitation, muscle aches, sweats, chills and stuffy nose. Pt is observed with fine tremors on BUE, restless legs and skin is clammy to touch. Motrin PRN was offered for muscle aches but pt refused stating he is able to tolerate pain level. Last COWS score was 12 at 1600. Pt was encouraged increase fluid intake for hydration. Safety precautions observed. Endorsed to manufacturing supervisor 2nd shift nurse to continue with care.
[2018-05-04 20:00] VITALS: BP 137/97
--- NOTE | 2018-05-04 20:00 | NUR ---
Start of Shift Patient noted to have headache=3/10 and pain on both shoulders=3/10. Patient refused PRN medications at this time. Patient appears anxious, is hyperverbal and disheveled. Patient is melancholic and avoids eye contact. Patient with flat affect and is noted to stare into the ceiling when being spoken to. Patient has anxiety per verbalization. Fall, universal and safety prec in place. Call light within reach. Last COWS=11. Will continue to monitor.
[2018-05-04] MEDS: CLONIDINE HCL 0.1 MG TABLET PO PRN (20:53)
--- NOTE | 2018-05-04 20:55 | NUR ---
PRN Clonidine Patient c/o anxiety and is noted to be easily "irritated". GD=326/97. Administered Clonidine 0.1 mg PO PRN. Will reassess.
[2018-05-04] MEDS ORDERED: GABAPENTIN 300 MG CAPSULE PO SCH (21:00)
--- NOTE | 2018-05-04 21:55 | NUR ---
Clonidine PRN Patient verbalized that he feels "better" and "less anxious".
[2018-05-04] MEDS: IBUPROFEN 600 MG TABLET PO PRN (22:28)
[2018-05-04] MEDS: ACETAMINOPHEN 325 MG TABLET PO PRN (22:29)
--- NOTE | 2018-05-04 22:30 | NUR ---
PRN Tylenol, Motrin and Trazodone Patient c/o headache=8/10 and shoulder pain=7/10. Administered Tylenol 650 mg PO PRN and Motrin 600 mg PO PRN. Patient also c/o inability to sleep. Administered Trazodone 150 mg PO PRN. Will reassess.
--- NOTE | 2018-05-04 23:30 | NUR ---
Reassessment-Tylenol, Motrin and Trazodone Patient verbalized that pain level on both head and shoulders=2/10. Patient also verbalized getting more sleepy.
[2018-05-05] VITALS: BP 126/88
--- NOTE | 2018-05-05 | NUR ---
COWS=10 Patient continues to c/o intermittent anxiety, nausea and headache and pain on shoulders. Patient with sad demeanor and is withdrawn.
--- NOTE | 2018-05-05 04:00 | NUR ---
COWS deferred Patient asleep and with no SOB nor facial grimacing noted. COWS deferred per MD order.
--- NOTE | 2018-05-05 07:19 | NUR ---
End of Shift Patient continues to c/o intermittent pain on head and both shoulders. PRN Tylenol, Motrin, Trazodone and Clonidine administered during the shift. Patient continues to appear disheveled. Patient continues to be melancholic and has a flat affect. Fall, universal and safety prec in place. Call light within reach. Last COWS=10 and slept for 7 hours. Endorsed to AM shift nurse for continuity of care.
--- NOTE | 2018-05-05 07:35 | NUR ---
START Of SHIFT Pt is a 33 yr old male, admitted on 04/30/18 for Opiate withdrawal and is on 4 day Subutex taper as ordered. Received report from shift supervisor melting nurse. Pt was given Tylenol PRN, Motrin PRN, Clonidine PRN and Trazodone PRN duringt he night. Last COWS score was 10. Pt slept for 7hrs. Pt is c/o he has difficulty time sleeping during the night and Trazodone was ineffective. Pt is c/o waking up with sore throat, stuffy nose, body aches, anxiety and irritable. Skin is intact, warm and clammy to touch. Fine tremors are seen on BUE and restless legs. Pt room is noted disheveled with dirty clothes on the floor and multiple open bottles of water on bedside table. Pt was encouraged increase fluid intake. Safety precautions observed. Call light is within reach. Will continue to monitor. Addendum: 05/05/18 at 0833 by PIERRE CONCEPCION LVN COWS SCORE COWS score was 12 at 0800
[2018-05-05 08:00] VITALS: BP 97/62
[2018-05-05] MEDS: KETOCONAZOLE 2% SHAMPOO 120 ML BOTTLE TP SCH (09:00)
[2018-05-05] MEDS ORDERED: BUPRENORPHINE HCL 2 MG TAB.SUBL SL SCH (09:00)
[2018-05-05] MEDS: GABAPENTIN 400 MG CAPSULE PO SCH ×2 (09:07→20:17)
[2018-05-05] MEDS: MULTIVITAMINS,THERAPEUTIC TABLET PO SCH (09:08)
[2018-05-05] MEDS ORDERED: TRAZODONE 100 MG TABLET PO PRN (09:30)
[2018-05-05] MEDS: IBUPROFEN 600 MG TABLET PO PRN ×2 (11:56→23:44)
--- NOTE | 2018-05-05 11:56 | NUR ---
PRN GIVEN Pt was c/o headache 10/11. Pt states "I think I'm getting a sinus infection". Motrin 600mg PO PRN was given as ordered. Encouraged increase fluid intake. Will continue to monitor.
[2018-05-05 12:00] VITALS: BP 131/93
--- NOTE | 2018-05-05 12:56 | NUR ---
PRN RE-ASSESSMENT Pt states he continues to have a headache but states it getting better. Pt was encouraged increase fluid intake. COWS score at 1200 was 12 for anxiety, agitation, sweats, stuffy nose and fine tremors on BUE.
[2018-05-05] MEDS ORDERED: METH-406 PO (13:28)
[2018-05-05] MEDS ORDERED: TRAZ-214 PO (13:28)
[2018-05-05] MEDS ORDERED: CLON0.1T14 PO (13:28)
[2018-05-05] MEDS ORDERED: GABA-536 PO (13:28)
[2018-05-05] MEDS ORDERED: HYDR-3895 PO (13:28)
[2018-05-05] MEDS ORDERED: OXYM-35 NS (13:28)
[2018-05-05] MEDS ORDERED: NALO4SPR NS (14:42)
[2018-05-05 16:00] VITALS: BP 124/91
[2018-05-05] MEDS: ACETAMINOPHEN 325 MG TABLET PO PRN (17:56)
--- NOTE | 2018-05-05 17:57 | NUR ---
PRN GIVEN Pt c/o headache 09/10. Facial grimacing is observed. Encouraged increase fluid intake. Tylenol 650mg PO PRN was given as ordered. Will continue to monitor.
[2018-05-05] MEDS: OXYMETAZOLINE NASAL 0.05% 15 ML SPRAY NS PRN (18:37)
--- NOTE | 2018-05-05 19:15 | NUR ---
END OF SHIFT Pt is a 33 yr old male, AA&Ox4. Pt was admitted on 04/30/18 for Opiate withdrawal and completed a 4 day Subutex taper as ordered. Pt was cooperative with medication regimen and plan of care. Pt was observed attending one of the groups during the day. Pt states he woke up today with nasal congestion and headache. Dr. Nathan was made aware and was prescribed Afrin nasal spray PRN. Afrin PRN nasal spray was given as ordered and was effective. Pt was also given Tylenol PRN and Motrin PRN for headache. Medication was effective. Pt was encouraged increase fluid intake. In addition, Pt was c/o anxiety, sweats and muscle aches. Pt was observed with fine tremors on BUE and fidgety. Last COWS score was 12 at 1630. Pt was encouraged increase fluid intake for hydration. Pot is to be discharged tomorrow. Safety precautions observed. Endorsed to shift engineer nurse to continue with care.
--- NOTE | 2018-05-05 19:30 | NUR ---
Start of shift note Pt is a 33 year old male admitted on 04/30/18 here for medically supervised opiate withdrawal. Pt completed a 4 day Subutex taper. Pt's last COWS was 12. Pt is on Fall precautions. Pt is being discharged tomorrow 05/06/18. Per endorsement pt had PRN Afrin, Tylenol and Motrin. Upon rounds pt was noted in bed watching tv. Explained 2100 medications and pt verbalized understanding. Safety measures are in place bed locked in low position, side rails up x2 and call light within reach. Will continue to monitor.
[2018-05-05 20:00] VITALS: BP 140/93
--- NOTE | 2018-05-05 20:00 | NUR ---
COWS Assessment Pt is presenting with withdrawal s/s: nasal stuffiness, tremors, body aches and mild anxiety. Pt's COWs was 10. Safety measures in place and will continue to monitor.
[2018-05-05] MEDS: CLONIDINE HCL 0.1 MG TABLET PO PRN (20:18)
--- NOTE | 2018-05-05 20:18 | NUR ---
PRN Clonidine Pt was presenting with anxiety and agitation. Administered PRN Clonidine, pt tolerated well and will continue to monitor.
--- NOTE | 2018-05-05 21:18 | NUR ---
PRN Clonidine Reassessment Pt is in recreational room watching a movie, he stated he feels less anxious and agitated. Medication noted to be effective. Safety measures in place and will continue to monitor.
[2018-05-05] MEDS: METHOCARBAMOL 750 MG TABLET PO PRN (23:43)
[2018-05-05] MEDS: HYDROXYZINE PAMOATE 25 MG CAPSULE PO PRN (23:44)
--- NOTE | 2018-05-05 23:44 | NUR ---
PRN Motrin, Trazodone, Vistaril and Robaxin Pt is presenting with a headache, difficulty falling asleep, and boy aches. Administered PRN Motrin, Trazodone, Vistaril and Robaxin, pt tolerated well and will continue to monitor.
[2018-05-06] VITALS: BP 126/84
--- NOTE | 2018-05-06 | NUR ---
COWS Deferred Patient is resting in bed with eyes closed, breathing is even and unlabored. Per protocol COWS is to be assessed while pt is awake. Safety measures in place and will continue to monitor.
--- NOTE | 2018-05-06 00:44 | NUR ---
Reassessment PRN Motrin, Trazodone, Vistaril and Robaxin Pt is noted in bed resting with eyes closed, breathing is even and unlabored. Medication noted to be effective, will continue to monitor.
--- NOTE | 2018-05-06 07:15 | NUR ---
End of shift note Pt is a 33 year old male admitted on 04/30/18 here for medically supervised opiate withdrawal. Pt completed a 4 day Subutex taper. Pt's last COWS was 10. Pt is on Fall precautions. Pt is being discharged today 05/06/18. Pt had PRN Motrin, Trazodone, Vistaril, Robaxin and Clonidine. Pt slept for 6 hours and had a total intake 1,210 ml. Pt voided x2 and had one bowel movements during this shift. Safety measures are in place bed locked in low position, side rails up x2 and call light within reach. Will endorse to day shift.
--- NOTE | 2018-05-06 07:30 | NUR ---
start of shift note: received pt from gluing machine operator electronic nurse, pt is in stable condition at this time pt is agitated and verbalizing he is so congested and has a bad cold. pt is admitted to [facility] for opiate withdrawal/dependence. pt completed taper without A/R noted. pt's last documented cows is 10 and slept for 6 hrs. pt is set to discharge today and will assist pt in discharging.
[2018-05-06] MEDS: KETOCONAZOLE 2% SHAMPOO 120 ML BOTTLE TP SCH (08:42)
[2018-05-06] MEDS: GABAPENTIN 400 MG CAPSULE PO SCH (08:43)
[2018-05-06] MEDS: MULTIVITAMINS,THERAPEUTIC TABLET PO SCH (08:43)
[2018-05-06] MEDS: OXYMETAZOLINE NASAL 0.05% 15 ML SPRAY NS PRN (08:43)
[2018-05-06 08:49] VITALS: BP 127/72
--- NOTE | 2018-05-06 09:39 | NUR ---
Discharge note: pt left the unit agitated and upset in regard to nasal spray pt was receiving, pt grabbed medication out of nurses hand and placed it in his pocket and said it has my name on it its mine. afrin spray was dispensed by hospital pharmacy. pt left with mild discomfort and body aches, educated pt on discharge prescriptions. pt verbalized understanding and all personal belongings were returned. pt is being transferred to [facility] via private car.
== END 2018-05-06 09:39 | disposition other institution (70) | DRG 895 ==
LOC: SRC 16:04
PROVIDERS: ADMIT Family Medicine Addiction Medicine; ATTEND Family Medicine Addiction Medicine
PROC: HZ2ZZZZ Detoxification Services for Substance Abuse Treatment (ICD-10-PCS; principal; 2018-04-30)
PROC: HZ31ZZZ Individual Counseling for Substance Abuse Treatment, Behavioral (ICD-10-PCS; 2018-05-03)
PROC: HZ41ZZZ Group Counseling for Substance Abuse Treatment, Behavioral (ICD-10-PCS; 2018-05-03)
DX: F11.23 Opioid dependence with withdrawal (principal); F41.9 Anxiety disorder, unspecified; Z82.49 Family history of ischemic heart disease and other diseases of the circulatory system; F31.9 Bipolar disorder, unspecified; F17.210 Nicotine dependence, cigarettes, uncomplicated; F10.10 Alcohol abuse, uncomplicated; Y90.0 Blood alcohol level of less than 20 mg/100 ml
CPT/HCPCS: 70030-TC; 80307; 80361; 83735; 84443; 85025; 86592; 86705; 86803; 87340; 87806; A4663; G0480; J2405; Q0162; Q0163